=== PATIENT | female | born 2000 | race American Indian/Alaskan Native ===

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

== ENCOUNTER 2024-09-12 12:10 | Outpatient (CLI) | payer OTHER | END 2024-09-12 12:11 | disposition home or self-care (01) | LOC: RAD 12:10 | PROVIDERS: ATTEND Otolaryngology Otolaryngology/Facial Plastic Surgery | DX: Z01.89 Encounter for other specified special examinations (principal) ==